=== PATIENT | female | born 1980 | race American Indian/Alaskan Native ===

== ENCOUNTER 2016-09-26 15:31 | Emergency (ER) | payer MEDICAID ==
[2016-09-26 16:15] VITALS: BP 118/85
--- NOTE | 2016-09-26 16:54 | Emergency Department Report ---
Chief Complaint: Chest Pain Stated Complaint: HEADACHE/NAUSEA Time Seen by Provider: 09/26/16 16:51 - HPI History of Present Illness: 36 y/o female complain of chest pain with n/v /pt complain of toothache that she current taking antibiotic and Tylenol#4.pt state she 14 weeks and is unable to be seen by dentist . 3 - ROS Review of Systems: per HPI - Exam Vital Signs: Vital Signs 09/26/16 16:10 Temperature 98.9 F Pulse Rate 111 H Respiratory 20 Rate Blood Pressure 118/85 O2 Sat by Pulse 100 Oximetry Physical Exam: GENERAL: The patient is well-developed and well-nourished. Patient is in NAD. HENT: Normocephalic. Atraumatic. Patient has moist mucous membranes. Throat: No erythema, swelling or exudates. EYES: Extraocular motions are intact, PERRL NECK: Supple. No meningitic signs are noted. There is no adenopathy noted. CHEST/LUNGS: Clear to auscultation bilaterally. No wheezing, rales or rhonchi noted. There is no respiratory distress noted. HEART/CARDIOVASCULAR: Regular rate and rhythm. Normal S1 S2. No murmurs, rubs , clicks, or gallops. ABDOMEN: Abdomen is soft, nontender.. Bowel sounds normoactive. There is no abdominal distention. Negative rebound tenderness. : Deferred. SKIN: There is no rash. There is no edema. There is no diaphoresis. NEURO: The patient is A&Ox3. The patient has no focal neurologic deficits. MUSCULOSKELETAL: There is no tenderness or deformity. There is no limitation range of motion. PSYCH: Pt has appropriate mood and affect. MSE screening note: Focused history and physical exam performed. Due to findings the following was ordered: ED Disposition for MSE Condition: Stable
[2016-09-26 17:48] LABS: Bacteria,Urine 1+ /HPF (Negative); Bilirubin,Urine NEG (Negative); Blood,Urine SM (Negative); Ketones,Urine 80 mg/dL (Negative); Leukocyte Esterase,Urine SM (Negative); Mucus,Urine 3+ /HPF; Nitrite,Urine NEG (Negative)
[2016-09-26 17:50] LABS: Protein,Urine >500 mg/dL (Negative)
--- NOTE | 2016-09-27 13:53 | ED Elopement Review ---
ED Pt Elopement review - Results review Lab results: Laboratory Tests 09/26/16 17:06 Urine Color Goldie Urine Turbidity Clear Urine pH 5.0 Ur Specific [place] 1.030 Urine Protein >500 Urine Glucose (UA) Neg Urine Ketones 80 Urine Blood Sm Urine Nitrite Neg Urine Bilirubin Neg Urine Urobilinogen 2.0 Ur Leukocyte Esterase Sm Urine WBC (Auto) 1.0 Urine RBC (Auto) 11.0 U Epithel Cells (Auto) 9.0 Urine Bacteria (Auto) 1+ Hyaline Casts 1 Urine Mucus 3+ - Call Back decision Pt Call Back Decision: Call pt to return to ED AR[facility]IN (chest pain and tachycardia during practitioners should be further evaluated)
== END 2016-09-26 17:00 | disposition left against medical advice (07) ==
LOC: ED 15:31
DX: O21.0 Mild hyperemesis gravidarum (principal); O26.892 Other specified pregnancy related conditions, second trimester; K08.89 Other specified disorders of teeth and supporting structures; R07.9 Chest pain, unspecified; Z3A.14 14 weeks gestation of pregnancy; Z53.21 Procedure and treatment not carried out due to patient leaving prior to being seen by health care provider
CPT/HCPCS: 81001; 93005; 93010

== ENCOUNTER 2017-03-07 14:58 | Outpatient (CLI) | payer MEDICAID ==
[2017-03-07] MEDS ORDERED: LACTATED RINGERS 500 ML IV ONE (15:18)
[2017-03-07 15:54] LABS: Bilirubin,Urine NEG (Negative); Blood,Urine NEG (Negative); Ketones,Urine NEG (Negative); Leukocyte Esterase,Urine NEG (Negative); Mucus,Urine 1+ /HPF; Nitrite,Urine NEG (Negative)
[2017-03-07 16:04] LABS: Hematocrit 28.7 % (30.3-42.9); Hemoglobin 9.1 gm/dl (10.1-14.3); Mean Corpuscular HGB Conc 32 % (30-34); Mean Corpuscular Volume 73 fl (79-97); Platelet Count 255 K/mm3 (140-440); Red Blood Count 3.96 M/mm3 (3.65-5.03); Red Cell Distribution Width 16.7 % (13.2-15.2); White Blood Count 9.1 K/mm3 (4.5-11.0)
[2017-03-07 16:06] LABS: Mean Corpuscular Hemoglobin 23 pg (28-32)
[2017-03-07 16:11] LABS: Alanine Aminotransferase 5 units/L (7-56); Lactate Dehydrogenase 169 units/L (91-180); Uric Acid 5.1 mg/dL (3.5-7.6)
--- NOTE | 2017-03-07 16:13 | Ultrasound Report ---
BIOPHYSICAL PROFILE: 2 - breathing movements 2 - movements 2 - posture and tone 2 - Qualitative amniotic fluid volume 8 - TOTAL SCORE OF POSSIBLE 8 Heart Rate (bpm) 148
--- NOTE | 2017-03-07 16:13 | Ultrasound Report ---
Limited transabdominal OB ultrasound. Findings: A single fetus is identified in cephalic presentation. The ALEA is normal at 13 cm. The heart rate is 158 beats per minute.
[2017-03-07 17:56] VITALS: BP 144/93
== END 2017-03-07 18:40 | disposition home or self-care (01) ==
LOC: TRG 14:58
PROVIDERS: ATTEND Obstetrics & Gynecology
DX: Z34.93 Encounter for supervision of normal pregnancy, unspecified, third trimester (principal); Z3A.36 36 weeks gestation of pregnancy
CPT/HCPCS: 36415; 59025; 76815; 76819; 81001; 82565; 83615; 84450; 84460; 84550; 85027

== ENCOUNTER 2017-03-13 10:03 | Outpatient (CLI) | payer MEDICAID ==
[2017-03-13 10:24] VITALS: BP 125/83
== END 2017-03-13 11:08 | disposition home or self-care (01) ==
LOC: TRG 10:03
PROVIDERS: ATTEND Obstetrics & Gynecology
DX: O09.523 Supervision of elderly multigravida, third trimester (principal); O99.333 Smoking (tobacco) complicating pregnancy, third trimester; O47.1 False labor at or after 37 completed weeks of gestation; Z3A.37 37 weeks gestation of pregnancy
CPT/HCPCS: 59025

== ENCOUNTER 2017-03-14 19:55 | Outpatient (CLI) | payer MEDICAID ==
[2017-03-14 20:48] VITALS: BP 127/87
== END 2017-03-14 21:05 | disposition home or self-care (01) ==
LOC: TRG 19:55
PROVIDERS: ATTEND Obstetrics & Gynecology
DX: O09.523 Supervision of elderly multigravida, third trimester (principal); O36.8130 Decreased fetal movements, third trimester, not applicable or unspecified; O62.9 Abnormality of forces of labor, unspecified; Z3A.37 37 weeks gestation of pregnancy
CPT/HCPCS: 59025

== ENCOUNTER 2017-03-21 00:54 | Inpatient (IN) | payer MEDICAID ==
[2017-03-21] MEDS: LACTATED RINGERS 1,000 ML IV SCH ×2 (01:40→06:05)
[2017-03-21] MEDS ORDERED: TYLENOL PO ONE (01:53)
[2017-03-21 01:57] LABS: Bilirubin,Urine NEG (Negative); Blood,Urine SM (Negative); Ketones,Urine NEG (Negative); Leukocyte Esterase,Urine LG (Negative); Mucus,Urine FEW /HPF; Nitrite,Urine NEG (Negative)
[2017-03-21 02:09] LABS: Hematocrit 27.3 % (30.3-42.9); Hemoglobin 8.7 gm/dl (10.1-14.3); Mean Corpuscular HGB Conc 32 % (30-34); Mean Corpuscular Volume 72 fl (79-97); Platelet Count 259 K/mm3 (140-440); Red Blood Count 3.82 M/mm3 (3.65-5.03); Red Cell Distribution Width 16.8 % (13.2-15.2); White Blood Count 7.4 K/mm3 (4.5-11.0)
[2017-03-21 02:12] LABS: Mean Corpuscular Hemoglobin 23 pg (28-32)
[2017-03-21 02:29] LABS: Alanine Aminotransferase 8 units/L (7-56); Alkaline Phosphatase 124 units/L (35-129); Anion Gap 14 mmol/L; BUN/Creatinine Ratio 12.85; Blood Urea Nitrogen 9 mg/dL (7-17); Calcium 8.2 mg/dL (8.4-10.2); Carbon Dioxide 24 mmol/L (22-30); Chloride 102.9 mmol/L (98-107); Glucose 85 mg/dL (65-100); Potassium 3.4 mmol/L (3.6-5.0); Sodium 137 mmol/L (137-145); Total Protein 5.9 g/dL (6.3-8.2)
[2017-03-21 02:33] LABS: Uric Acid 4.9 mg/dL (3.5-7.6)
--- NOTE | 2017-03-21 03:07 | History and Physical Report ---
History of Present Illness Date of examination: 03/21/17 Date of admission: 03/21/2017 Chief complaint: Headache History of present illness: 37 yo at 38.2 weeks. A patient of [facility] since 8 weeks of . Course complicated by AMA, chronic headaches, anemia, and chronic hypertension. Pt has been co managed with [facility]. She has not been on medication for her HTN during the but presents to L&D triage [facility] with a headache and blood pressures ranging from 150-170s/90-107. 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 denies: alcohol abuse - Obstetrical History Expected Date of Delivery: 04/02/17 Actual Gestation: 38 Week(s) 2 Day(s) : 5 Para: 4 Hx # Term Pregnancies: 4 Number of Pregnancies: 0 Spontaneous Abortions: 0 Induced : 1 Number of Living Children: 4 Medications and Allergies Allergies Allergy/AdvReac Type Severity Reaction Status Date / Time bee pollen Allergy Angioedema Verified 08/01/14 14:36 Home Medications Medication Instructions Recorded Confirmed Last Taken Type Azithromycin [Zithromax] 250 mg PO DAILY #1 pkg 12/02/15 Unknown Rx Fluticasone [Flonase] 2 spray NS QDAY #1 bottle 12/02/15 Unknown Rx Loratadine [Claritin] 10 mg PO DAILY #30 tablet 12/02/15 Unknown Rx Prednisone [predniSONE 10 mg 10 mg PO .TAPER #1 tab.ds.pk 12/02/15 Unknown Rx (6-Day Pack, 21 Tabs)] Promethazine /Codeine 5 ml PO Q6H PRN #150 ml 12/02/15 Unknown Rx [Phenergan/Codeine 6.25-10 mg/5 ml] Active Meds: Active Medications Lactated Ringer's (Lactated Ringers) 1,000 mls @ 125 mls/hr IV DIRECT CARON Review of Systems All systems: negative - Vital Signs Vital signs: Vital Signs Pulse BP 71 137/94 03/21/17 01:04 03/21/17 01:04 Temp Pulse Resp BP Pulse Ox 60 156/98 03/21/17 02:37 03/21/17 02:37 - Physical Exam Cardiovascular: Regular rate Lungs: Positive: Normal air movement Vagina: Positive: normal moisture Extremities: Positive: normal Deep Tendon Reflex Grade: Normal +2 - Obstetrical FHR: category 1 Uterine Contraction Monitor Mode: External Uterine Contraction Pattern: Absent Results Result Diagrams: 03/21/17 01:40 03/21/17 01:40 Abnormal lab results 03/21/17 03/21/17 Range/Units 01:40 01:40 Hgb 8.7 L (10.1-14.3) gm/dl Hct 27.3 L (30.3-42.9) % MCV 72 L (79-97) fl MCH 23 L (28-32) pg RDW 16.8 H (13.2-15.2) % Potassium 3.4 L (3.6-5.0) mmol/L Calcium 8.2 L (8.4-10.2) mg/dL Total Protein 5.9 L (6.3-8.2) g/dL Albumin 3.0 L (3.9-5) g/dL All other labs normal. Assessment and Plan A: IUP 38.2 Chronic HTN with superimposed pre-eclampsia with severe features Headache Category 1 FHT Negligible contractions GBS negative P: Consulted with Dr. Puga who agrees with this plan Admit to L&D for IOL Being magnesium sulfate Pitocin induction
[2017-03-21] MEDS ORDERED: ePHEDrine SULFATE IV PRN (03:15)
[2017-03-21] MEDS ORDERED: STADOL IV PRN (03:15)
[2017-03-21] MEDS ORDERED: BRETHINE IVP PRN (03:15)
[2017-03-21] MEDS ORDERED: XYLOCAINE 2% INFILTRATI ONE (03:15)
[2017-03-21] MEDS ORDERED: BRETHINE SUB-Q PRN (03:15)
[2017-03-21] MEDS ORDERED: MINERAL OIL PO PRN (03:15)
[2017-03-21] MEDS ORDERED: ZOFRAN IV PRN (03:15)
[2017-03-21] MEDS ORDERED: SUBLIMAZE IV PRN (03:15)
[2017-03-21] MEDS ORDERED: MAGNESIUM SULFATE 4GM/100ML 4 GM/100 ML BAG IV ONE (03:18)
[2017-03-21] MEDS ORDERED: APRESOLINE IV PRN (03:20)
[2017-03-21] MEDS ORDERED: PITOCin/NS 20 UNIT/1000ML DRIP 20 UNITS/1,000 ML BAG IV SCH (04:00)
[2017-03-21] MEDS: MAGNESIUM SULFATE 40GM/1000ML 40 GM/1,000 ML BAG IV SCH (06:05)
[2017-03-21] MEDS: PITOCin/NS 30 UNIT/500ML 30 UNITS/500 ML BAG IV SCH ×3 (07:42→09:48)
--- NOTE | 2017-03-21 08:42 | Event Note ---
Date: 03/21/17 O: Arom clear fluid, , CAT I tracing, Pit increased to 6mu A: Active labor P; Expect
[2017-03-21] MEDS ORDERED: CYTOTEC PR ONE (12:00)
[2017-03-21] MEDS ORDERED: CYTOTEC ONE (12:03)
[2017-03-21] MEDS ORDERED: PHENERGAN PO PRN (12:16)
[2017-03-21] MEDS ORDERED: TYLENOL PO PRN (12:16)
[2017-03-21] MEDS ORDERED: BENADRYL PO PRN (12:16)
[2017-03-21] MEDS ORDERED: LANSINOH TP PRN (12:16)
--- NOTE | 2017-03-21 12:22 | Procedure Note ---
OB Delivery Note - Delivery Date of Delivery: 03/21/17 Surgeon: JUANITO SANTA Estimated blood loss: other (400) - Vaginal Delivery presentation: vertex Delivery position: OA Intrapartum events: preeclampsia Delivery induction: oxytocin Delivery augmentation: rupture of membranes Delivery monitor: external FHT, external uterine Route of delivery: Delivery placenta: spontaneous Delivery cord: nuchal cord, 3 umbilical vessels Episiotomy: none Delivery laceration: none Anesthesia: intravenous Delivery comments: of a viable female 6#-1oz @ 1142 on 03/21/17 over intact perineum. Loose nuchal cord x1. PLacenta delivered 3 VCI. Bladder emptied with red lexi, large amount of urine noted. Lost IV site. Pitocin 10 mg IM and Cytotec 600mg PA x one. Fundal massage done. EBL 400 cc. Mother and baby doing well. - A at 1 minute: 8 at 5 minutes: 9 Gender: Female (6# -1 oz)
[2017-03-21] MEDS ORDERED: SODIUM CHLORIDE FLUSH SYRINGE 10 ML IV NR (13:00)
[2017-03-21] MEDS: NORCO 5/325 PO PRN ×2 (15:19→21:07)
[2017-03-21] MEDS: MOTRIN PO SCH ×2 (17:54→23:39)
[2017-03-22] MEDS: LACTATED RINGERS 1,000 ML IV SCH (01:14)
[2017-03-22] MEDS: MAGNESIUM SULFATE 40GM/1000ML 40 GM/1,000 ML BAG IV SCH (01:15)
--- NOTE | 2017-03-22 01:48 | Event Note ---
Date: 03/22/17 Reviewed labs, mag level 5.8. Plan is to reduce magnesium to 1 g per hour
[2017-03-22 02:31] LABS: Hematocrit 27.5 % (30.3-42.9); Hemoglobin 8.7 gm/dl (10.1-14.3)
[2017-03-22] MEDS: MOTRIN PO SCH ×2 (04:58→11:00)
[2017-03-22] MEDS: NORCO 5/325 PO PRN ×3 (06:10→20:33)
--- NOTE | 2017-03-22 09:52 | Progress Note ---
Assessment and Plan A: PPD 1 Chronic HTN with superimposed pre-eclampsia with severe features Headache BP remains slightly elevated post P: Consulted with Dr. Pimentel who agrees with this plan Continue care Begin HCTZ 25 mg po qday and follow up on Sunday in the clinic for a BP check DC today Subjective - Subjective Date of service: 03/22/17 Principal diagnosis: PPD1 Interval history: 37 yo at 38.2 weeks. 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 Course complicated by AMA, chronic headaches, anemia, and chronic hypertension. Pt has been co managed with [facility]. She has not been on medication for her HTN during the but presented to L&D triage with a headache and blood pressures ranging from 150-170s/90-107. Started on MgSO4 for Preeclampsia with severe features and induced for oligo. Delivered 03/21/2017 @ 1111. BPS have been slighlty elevated since delivery. Patient reports: appetite normal, voiding normally, pain well controlled, ambulating normally : doing well Objective - Vital Signs Latest vital signs: Vital Signs Temp Pulse Pulse Resp BP BP 03/22/17 08:02 97.8 F 65 18 132/85 03/22/17 06:00 98 F 66 18 149/85 03/22/17 04:25 98.2 F 66 20 128/77 03/22/17 02:00 98 F 61 22 139/84 03/22/17 00:00 98.2 F 60 20 143/83 03/21/17 22:00 98.5 F 66 20 148/84 03/21/17 20:00 98.1 F 62 22 152/84 03/21/17 18:22 97.9 F 68 18 127/87 03/21/17 14:45 98.1 F 62 18 141/86 03/21/17 13:55 63 173/91 03/21/17 13:40 63 150/91 03/21/17 13:25 72 155/89 03/21/17 13:10 60 168/109 03/21/17 12:55 62 151/97 03/21/17 12:40 68 147/90 03/21/17 12:25 75 141/88 03/21/17 11:58 72 161/81 03/21/17 10:57 68 157/87 03/21/17 10:29 72 173/89 07/12/17 09:59 63 168/95 Intake and Output 03/21/17 03/22/17 03/22/17 22:59 06:59 14:59 Intake Total 360 720 Output Total 2600 800 Balance -2240 -80 Intake: Oral 120 Intake, Free Water 240 720 Output: Urine 2600 800 Void 2600 800 Other: Total, Intake Amount 120 Total, Output Amount 800 800 # Voids Void 1 1 - Exam Cardiovascular: Present: Regular rate Lungs: Present: Normal air movement Vulva: both: normal (scant lochia) Uterus: Present: fundal height below umbilicus Extremities: Present: normal Deep Tendon Reflex Grade: Normal +2 - Labs Labs: Abnormal lab results 03/21/17 03/21/17 03/22/17 Range/Units 16:32 23:04 01:20 Hgb 8.7 L (10.1-14.3) gm/dl Hct 27.5 L (30.3-42.9) % Magnesium 4.80 H 5.80 H (1.7-2.3) mg/dL 03/22/17 Range/Units 07:41 Hgb (10.1-14.3) gm/dl Hct (30.3-42.9) % Magnesium 3.40 H (1.7-2.3) mg/dL - Allied health notes Allied health notes reviewed: nursing
--- NOTE | 2017-03-22 09:56 | Discharge Summary ---
Providers - Providers Date of Admission: 03/21/17 03:57 Date of discharge: 03/22/17 Attending physician: LAMAR DIEHL MD Primary care physician: LAMAR DIEHL MD Hospitalization Reason for admission: active labor, induction of labor (Scheduled for IOL for oligo but became active labor while awaiting admission) Delivery: Laceration: none Other procedures: none Discharge diagnosis: IUP at term delivered baby: female Hospital course: Elevated BPs antepartum received MgSO4. Mg level 5.8. BPs slightly elevated. Condition at discharge: Good Disposition: DC-01 TO HOME OR SELFCARE Plan - Provider Discharge Summary Activity: routine, no sex for 6 weeks, no heavy lifting 4 weeks, no strenuous exercise Diet: routine Instructions: routine Additional instructions: [] Smoking cessation referral if applicable(refer to patient education folder for contact #) [] Refer to [facility]'s [facility] Booklet Call your doctor immediately for: * Fever > 100.5 * Heavy vaginal bleeding ( >1 pad per hour) * Severe persistent headache * Shortness of breath * Reddened, hot, painful area to leg or breast * Drainage or odor from incision. * Keep incision clean and dry at all times and follow doctor's instructions regarding bathing/showering - Follow up plan Follow up: [facility] [Provider Group] - 03/26/17
[2017-03-22] MEDS ORDERED: HCTZ PO SCH (10:00)
[2017-03-22 19:09] VITALS: BP 123/77
== END 2017-03-22 20:53 | disposition home or self-care (01) | DRG 774 ==
LOC: TRG 00:54 → LD 03:57 → OB 15:09
PROVIDERS: ADMIT Obstetrics & Gynecology; ATTEND Obstetrics & Gynecology
PROC: 10E0XZZ Delivery of Products of Conception, External Approach (ICD-10-PCS; principal; 2017-03-21)
PROC: 3E033VJ Introduction of Other Hormone into Peripheral Vein, Percutaneous Approach (ICD-10-PCS; 2017-03-21)
DX: O14.14 Severe pre-eclampsia complicating childbirth (principal); O69.81X0 Labor and delivery complicated by cord around neck, without compression, not applicable or unspecified; O99.334 Smoking (tobacco) complicating childbirth; O99.354 Diseases of the nervous system complicating childbirth; G43.909 Migraine, unspecified, not intractable, without status migrainosus; O09.523 Supervision of elderly multigravida, third trimester; Z88.8 Allergy status to other drugs, medicaments and biological substances; Z3A.38 38 weeks gestation of pregnancy; Z37.0 Single live birth; Z91.030 Bee allergy status
CPT/HCPCS: 36415; 80053; 81001; 83615; 83735; 84550; 85014; 85018; 85027; 86850; 86900; 86901; A6250; J0595; J2590; J3010; J3475; J7120

== ENCOUNTER 2019-01-27 11:22 | Observation (INO) | payer MEDICAID ==
--- NOTE | 2019-01-27 11:55 | Emergency Department Report ---
Blank Doc - Documentation Documentation: this is a 38-year-old female that presents with vaginal bleeding and pelvic pa in. Stated is about 5 weeks . This initial assessment/diagnostic orders/clinical plan/treatment(s) is/are subject to change based on patient's health status, clinical progression and re-assessment by fellow clinical providers in the ED. Further treatment and workup at subsequent clinical providers discretion. Patient/guardians urged not to elope from the ED as their condition may be serious if not clinically assessed and managed. Initial orders include: 1- Patient sent to [facility] for further evaluation and treatment 2- labs 3- UA 4- US OB
--- NOTE | 2019-01-27 13:27 | Ultrasound Report ---
PROCEDURE: US OB TRANSVAGINAL, US OB <= 14 WEEKS FETUS TECHNIQUE: Real-time transabdominal sonography of the uterus, placenta, amniotic fluid, adnexa, and fetus was performed with image documentation. Measurements were obtained to determine age/size. M-mode Doppler was used to document heartbeat. HISTORY: vaginal bleeding COMPARISONS: None . FINDINGS: Uterus: 10.7 x 6.2 x 5.9 cm, retroverted. Endometrium is irregular with complex fluid. Cervix: Normal. Right Ovary: 2.2 x 2.1 x 3.9 cm in size. Normal morphology with 2 adjacent simple appearing follicle s. Left Ovary: 2.4 x 2.8 x 2.8 cm. Normal in morphology. Within the left adnexa, there is a thick-mariza d 0.75 cm cystic structure with internal vascularity as well as a possible yolk sac . Estimated delivery date: 09/25/2019 . IMPRESSION: Findings are concerning for ectopic within the left adnexa. Recommend correlation with beta hCG levels and follow-up ultrasound as clinically indicated. Findings were discussed with Dr. Laney powers at 1:24 PM, [place] standard time, on 01/27/2019. Complex fluid within the endometrium that may represent hemorrhagic products. This document is electronically signed by Stephanie Mcdowell MD., Jan 27 2019 01:25:55 PM ET
[2019-01-27 13:28] LABS: Bilirubin,Urine NEG (Negative); Blood,Urine NEG (Negative); Color,Urine Yellow (Yellow); Mucus,Urine FEW /HPF; Protein,Urine <15 mg/dL mg/dL (Negative)
[2019-01-27 15:01] LABS: Alanine Aminotransferase 25 units/L (7-56); Albumin 3.8 g/dL (3.9-5); BUN/Creatinine Ratio 14; Blood Urea Nitrogen 10 mg/dL (7-17); Calcium 8.5 mg/dL (8.4-10.2); Hemolysis Index 3
[2019-01-27 15:11] LABS: Basophils # (Auto) 0.1 K/mm3 (0.0-0.1); Eosinophils # (Auto) 0.2 K/mm3 (0.0-0.4); Eosinophils % (Auto) 4.1 % (0.0-4.3); Hematocrit 30.8 % (30.3-42.9); Hemoglobin 9.9 gm/dl (10.1-14.3); Lymphocytes # (Auto) 1.7 K/mm3 (1.2-5.4); Lymphocytes % (Auto) 29.6 % (13.4-35.0); Mean Corpuscular HGB Conc 32 % (30-34); Mean Corpuscular Volume 75 fl (79-97); Monocytes # (Auto) 0.5 K/mm3 (0.0-0.8); Monocytes % (Auto) 8.1 % (0.0-7.3); Platelet Count 229 K/mm3 (140-440); Red Blood Count 4.09 M/mm3 (3.65-5.03); Red Cell Distribution Width 15.3 % (13.2-15.2)
--- NOTE | 2019-01-27 15:43 | Emergency Department Report ---
ED Female HPI - General Chief complaint: Vaginal Bleeding Stated complaint: 5 WKS /BLEEDING Time Seen by Provider: 01/27/19 11:54 Source: patient Mode of arrival: Ambulatory Limitations: No Limitations - History of Present Illness Initial comments: The patient is a 38-year-old black female who is . Patient is Guillermoley 5 weeks with having some vaginal bleeding and cramping in the suprapubic region and low back starting today. Patient states about how she got here the bleeding has subsided but she still having some cramping. Patient is a cramping as 7 out of 10 in severity. Patient denies any fevers chills nausea vomiting or syncope. She denies dysuria vaginal discharge. - Related Data Previous Rx's Medication Instructions Recorded Last Taken Type Azithromycin [Zithromax] 250 mg PO DAILY #1 pkg 12/02/15 Unknown Rx Fluticasone [Flonase] 2 spray NS QDAY #1 bottle 12/02/15 Unknown Rx Loratadine [Claritin] 10 mg PO DAILY #30 tablet 12/02/15 Unknown Rx Prednisone [predniSONE 10 mg 10 mg PO .TAPER #1 tab.ds.pk 12/02/15 Unknown Rx (6-Day Pack, 21 Tabs)] Promethazine /Codeine 5 ml PO Q6H PRN #150 ml 12/02/15 Unknown Rx [Phenergan/Codeine 6.25-10 mg/5 ml] Ibuprofen [Motrin] 800 mg PO Q8HR PRN #20 tablet 01/28/19 Unknown Rx oxyCODONE /ACETAMINOPHEN [Percocet 1 tab PO Q4HR #7 tab 01/28/19 Unknown Rx 5/325] Allergies Allergy/AdvReac Type Severity Reaction Status Date / Time bee pollen Allergy Angioedema Verified 08/01/14 14:36 ED Review of Systems ROS: Stated complaint: 5 WKS /BLEEDING Other details as noted in HPI Comment: All other systems reviewed and negative ED Past Medical Hx - Past Medical History Previous Medical History?: Yes Hx Hypertension: Yes Hx Congestive Heart Failure: No Hx Diabetes: No Hx Deep Vein Thrombosis: No Hx Renal Disease: No Hx Sickle Cell Disease: No Hx Seizures: No Hx Asthma: No Hx COPD: No Hx HIV: No - Surgical History Past Surgical History?: Yes Additional Surgical History: - Social History Smoking Status: Former Smoker Substance Use Type: None - Medications Home Medications: Home Medications Medication Instructions Recorded Confirmed Last Taken Type Azithromycin [Zithromax] 250 mg PO DAILY #1 pkg 12/02/15 01/27/19 Unknown Rx Fluticasone [Flonase] 2 spray NS QDAY #1 bottle 12/02/15 01/27/19 Unknown Rx Loratadine [Claritin] 10 mg PO DAILY #30 tablet 12/02/15 01/27/19 Unknown Rx Prednisone [predniSONE 10 mg 10 mg PO .TAPER #1 tab.ds.pk 12/02/15 01/27/19 Unknown Rx (6-Day Pack, 21 Tabs)] Promethazine /Codeine 5 ml PO Q6H PRN #150 ml 12/02/15 01/27/19 Unknown Rx [Phenergan/Codeine 6.25-10 mg/5 ml] Ibuprofen [Motrin] 800 mg PO Q8HR PRN #20 tablet 01/28/19 Unknown Rx oxyCODONE /ACETAMINOPHEN [Percocet 1 tab PO Q4HR #7 tab 01/28/19 Unknown Rx 5/325] ED Physical Exam - General Limitations: No Limitations General appearance: alert, in no apparent distress - Head Head exam: Present: atraumatic, normocephalic - Eye Eye exam: Present: normal appearance - ENT ENT exam: Present: mucous membranes moist - Neck Neck exam: Present: normal inspection - Respiratory Respiratory exam: Present: normal lung sounds bilaterally. Absent: respiratory distress, wheezes, rales, rhonchi - Cardiovascular Cardiovascular Exam: Present: regular rate, normal rhythm. Absent: systolic murmur, diastolic murmur, rubs, gallop - GI/Abdominal GI/Abdominal exam: Present: soft, tenderness (minimal in suprapubic ), normal bowel sounds. Absent: distended, guarding, rebound, rigid - Extremities Exam Extremities exam: Present: normal inspection - Back Exam Back exam: Present: normal inspection - Neurological Exam Neurological exam: Present: alert, oriented X3 - Psychiatric Psychiatric exam: Present: normal affect, normal mood - Skin Skin exam: Present: warm, dry, intact, normal color. Absent: rash ED Course Vital Signs 01/27/19 01/27/19 01/27/19 11:53 21:08 21:15 Temperature 98.6 F 98.1 F Pulse Rate 91 H 72 64 Pulse Rate [ Apical] Respiratory 16 16 16 Rate Blood Pressure 129/83 145/88 152/94 Blood Pressure [Right] O2 Sat by Pulse 100 98 100 Oximetry 01/27/19 01/27/19 01/27/19 21:20 21:25 21:30 Temperature Pulse Rate 63 66 64 Pulse Rate [ Apical] Respiratory 14 15 14 Rate Blood Pressure 142/92 144/95 139/93 Blood Pressure [Right] O2 Sat by Pulse 100 100 100 Oximetry 01/27/19 01/27/19 01/27/19 21:38 21:40 21:54 Temperature 98.1 F Pulse Rate 68 68 Pulse Rate [ Apical] Respiratory 16 16 14 Rate Blood Pressure 147/86 138/89 Blood Pressure [Right] O2 Sat by Pulse 100 100 Oximetry 01/27/19 01/27/19 01/27/19 21:55 22:10 22:29 Temperature 97.7 F Pulse Rate 67 Pulse Rate [ 78 Apical] Respiratory 18 16 20 Rate Blood Pressure 136/90 Blood Pressure [Right] O2 Sat by Pulse 100 Oximetry 01/28/19 01/28/19 01/28/19 05:30 08:00 08:57 Temperature 98.0 F 98.2 F Pulse Rate 74 86 Pulse Rate [ 82 Apical] Respiratory 20 18 20 Rate Blood Pressure 123/80 Blood Pressure [Right] O2 Sat by Pulse 100 100 Oximetry 01/28/19 11:25 Temperature 98.2 F Pulse Rate 72 Pulse Rate [ Apical] Respiratory 18 Rate Blood Pressure Blood Pressure 127/80 [Right] O2 Sat by Pulse 99 Oximetry ED Medical Decision Making - Lab Data Result diagrams: 01/28/19 10:24 01/27/19 14:21 Labs 01/27/19 01/27/19 01/27/19 12:31 14:21 14:21 WBC 5.7 RBC 4.09 Hgb 9.9 L Hct 30.8 MCV 75 L MCH 24 L MCHC 32 RDW 15.3 H Plt Count 229 Lymph % (Auto) 29.6 [place] % (Auto) 8.1 H Eos % (Auto) 4.1 Baso % (Auto) 1.0 Lymph # 1.7 [place] # 0.5 Eos # 0.2 Baso # 0.1 Seg Neutrophils % 57.2 Seg Neutrophils # 3.3 Sodium Potassium Chloride Carbon Dioxide Anion Gap BUN Creatinine Estimated GFR BUN/Creatinine Ratio Glucose Calcium Total Bilirubin AST ALT Alkaline Phosphatase Total Protein Albumin Albumin/Globulin Ratio HCG, Quant 2827 H Urine Color Yellow Urine Turbidity Hazy Urine pH 7.0 Ur Specific [place] 1.021 Urine Protein <15 mg/dl Urine Glucose (UA) Neg Urine Ketones Neg Urine Blood Neg Urine Nitrite Neg Urine Bilirubin Neg Urine Urobilinogen 2.0 Ur Leukocyte Esterase Tr Urine WBC (Auto) 2.0 Urine RBC (Auto) 3.0 U Epithel Cells (Auto) 3.0 Urine Mucus Few Blood Type Antibody Screen 01/27/19 01/27/19 14:21 14:21 WBC RBC Hgb Hct MCV MCH MCHC RDW Plt Count Lymph % (Auto) [place] % (Auto) Eos % (Auto) Baso % (Auto) Lymph # [place] # Eos # Baso # Seg Neutrophils % Seg Neutrophils # Sodium 138 Potassium 3.9 Chloride 103.5 Carbon Dioxide 26 Anion Gap 12 BUN 10 Creatinine 0.7 Estimated GFR > 60 BUN/Creatinine Ratio 14 Glucose 90 Calcium 8.5 Total Bilirubin 0.20 AST 18 ALT 25 Alkaline Phosphatase 118 Total Protein 6.3 Albumin 3.8 L Albumin/Globulin Ratio 1.5 HCG, Quant Urine Color Urine Turbidity Urine pH Ur Specific [place] Urine Protein Urine Glucose (UA) Urine Ketones Urine Blood Urine Nitrite Urine Bilirubin Urine Urobilinogen Ur Leukocyte Esterase Urine WBC (Auto) Urine RBC (Auto) U Epithel Cells (Auto) Urine Mucus Blood Type O POSITIVE Antibody Screen Negative - Radiology Data [facility] [address] [place] [address] Ultrasound Report Signed Patient: OLEKSANDR RODRIGUEZ MR#: [id number] : 1980 Acct:[id number] Age/Sex: 38 / F ADM Date: 01/27/19 Loc: ED Attending Dr: Ordering Physician: RAJIV PURCELL NP Date of Service: 01/27/19 Procedure(s): US OB transvaginal Accession Number(s): [id number] cc: RAJIV PURCELL NP PROCEDURE: US OB TRANSVAGINAL, US OB <= 14 WEEKS FETUS TECHNIQUE: Real-time transabdominal sonography of the uterus, placenta, amniotic fluid, adnexa, and fetus was performed with image documentation. Measurements were obtained to determine age/size. M-mode Doppler was used to document heartbeat. HISTORY: vaginal bleeding COMPARISONS: None . FINDINGS: Uterus: 10.7 x 6.2 x 5.9 cm, retroverted. Endometrium is irregular with complex fluid. Cervix: Normal. Right Ovary: 2.2 x 2.1 x 3.9 cm in size. Normal morphology with 2 adjacent simple appearing follicles. Left Ovary: 2.4 x 2.8 x 2.8 cm. Normal in morphology. Within the left adnexa, there is a thick- walled 0.75 cm cystic structure with internal vascularity as well as a possible yolk sac . Estimated delivery date: 09/25/2019 . IMPRESSION: Findings are concerning for ectopic within the left adnexa. Recommend correlation with beta hCG levels and follow-up ultrasound as clinically indicated. Findings were discussed with Dr. Zarate at 1:24 PM, [place] standard time, on 01/27/2019. Complex fluid within the endometrium that may represent hemorrhagic products. This document is electronically signed by Stephanie Franco MD., Jan 27 2019 01:25:55 PM ET Transcribed By: BOGDAN Dictated By: STEPHANIE FRANCO MD Electronically Authenticated By: STEPHANIE FRANCO MD Signed Date/Time: 01/27/19 1327 DD/ 1155 TD/TT: 01/27/19 1155 - Medical Decision Making Patient appears to have an ectopic in the left adnexa. Patient likely is not ruptured. Dr. Petty will be seen the patient here in the emergency department. Critical care attestation.: If time is entered above; I have spent that time in minutes in the direct care of this critically ill patient, excluding procedure time. ED Disposition Clinical Impression: Ectopic Disposition: OP ADMIT IP TO THIS HOSP Is pt being admited?: Yes Does the pt Need Aspirin: No Condition: Stable
[2019-01-27] MEDS ORDERED: MARCAINE 0.5% INFILTRATI ONE ×2 (17:41→19:35)
--- NOTE | 2019-01-27 18:00 | History and Physical Report ---
History of Present Illness Date of examination: 01/27/19 Date of admission: 01/27/19 Chief complaint: at 5 weeks with left-sided pelvic pain, positive test. History of present illness: Patient is a 38 year old , LMP 12/21/18 at 5 weeks gestation who presented to the ER complaining of having left-sided pelvic pain for 3 days which worsened today and vaginal spotting. She denies any dizziness, palpitation, or chest pain. Vitals are stable. Pelvic sonogram showed an empty uterus, a complex structure in the left adnexa with internal vascularity, normal right adnexa. H/H:9.9/30.8, HC. T&: O+. I was called by the ER doctor at 4:42 PM for a consult. I found the patient lying in bed. She is alert and in no acute distress. 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 Past History Past Medical History: hypertension Past Surgical History: D&C Family/Genetic History: none Social history: no significant social history - Obstetrical History : 5 Medications and Allergies Allergies Allergy/AdvReac Type Severity Reaction Status Date / Time bee pollen Allergy Angioedema Verified 08/01/14 14:36 Home Medications Medication Instructions Recorded Confirmed Last Taken Type Azithromycin [Zithromax] 250 mg PO DAILY #1 pkg 12/02/15 Unknown Rx Fluticasone [Flonase] 2 spray NS QDAY #1 bottle 12/02/15 Unknown Rx Loratadine [Claritin] 10 mg PO DAILY #30 tablet 12/02/15 Unknown Rx Prednisone [predniSONE 10 mg 10 mg PO .TAPER #1 tab.ds.pk 12/02/15 Unknown Rx (6-Day Pack, 21 Tabs)] Promethazine /Codeine 5 ml PO Q6H PRN #150 ml 12/02/15 Unknown Rx [Phenergan/Codeine 6.25-10 mg/5 ml] - Vital Signs Vital signs: Vital Signs Temp Pulse Resp BP Pulse Ox 98.6 F 91 H 16 129/83 100 01/27/19 11:53 01/27/19 11:53 01/27/19 11:53 01/27/19 11:53 01/27/19 11:53 Temp Pulse Resp BP Pulse Ox 98.6 F 91 H 16 129/83 100 01/27/19 11:53 01/27/19 11:53 01/27/19 11:53 01/27/19 11:53 01/27/19 11:53 - Physical Exam Cardiovascular: Normal S1, Normal S2 Lungs: Positive: Clear to auscultation Abdomen: Positive: normal appearance, tenderness (Mild left-sided, no rebound.) Vulva: both: normal Adnexa: left: tenderness (Unbale to assess for any mass.) Deep Tendon Reflex Grade: Normal +2 Results Result Diagrams: 01/27/19 14:21 01/27/19 14:21 Abnormal lab results 01/27/19 01/27/19 01/27/19 Range/Units 14:21 14:21 14:21 Hgb 9.9 L (10.1-14.3) gm/dl MCV 75 L (79-97) fl MCH 24 L (28-32) pg RDW 15.3 H (13.2-15.2) % [place] % (Auto) 8.1 H (0.0-7.3) % Albumin 3.8 L (3.9-5) g/dL HCG, Quant 2827 H (0-4) mIU/mL All other labs normal. Assessment and Plan - Patient Problems (1) 5 weeks gestation of Current Visit: Yes Status: Acute (2) Ectopic , tubal Current Visit: Yes Status: Acute Plan to address problem: For diagnostic laparoscopy. (3) Ectopic Current Visit: Yes Status: Acute Qualifiers: Location of ectopic : unspecified location Intrauterine status: without intrauterine Qualified Code(s): O00.90 - Unspecified ectopic without intrauterine Plan to address problem: I discussed the findings with the patient. I told her that she most likely has an ectopic . I counselled her for diagnostic laparoscopy with possible salpingiectomy, oophorectomy, exploratory lalarotomy. Risks and benefits of the procedure were discussed with the patient such as infection, bleeding requiring blood transfusion, injury to the bowel, bladder and blood vessels. She expressed understanding, her questions were answered, she gave her informed consent. OR team has been notified. Patient is NPO.
[2019-01-27] MEDS ORDERED: LACTATED RINGERS 1,000 ML ONE ×2 (18:17→22:59)
[2019-01-27] MEDS ORDERED: ZEMURON IV ONE (18:42)
[2019-01-27] MEDS ORDERED: XYLOCAINE MPF 2% ONE (18:42)
[2019-01-27] MEDS ORDERED: SUBLIMAZE ONE (18:42)
[2019-01-27] MEDS ORDERED: DIPRIVAN 10 MG/ML IV ONE ×2 (18:42→20:44)
[2019-01-27] MEDS ORDERED: VERSED ONE (18:54)
[2019-01-27] MEDS ORDERED: DILAUDID IV PRN (19:00)
[2019-01-27] MEDS ORDERED: ZOFRAN IV PRN ×2 (19:00→21:14)
--- NOTE | 2019-01-27 19:00 | Anesthesia Consultation ---
Anesthesia Consult and Med Hx - Airway Anesthetic Teeth Evaluation: Good ROM Head & Neck: Adequate Mental/Hyoid Distance: Adequate Mallampati Class: Class II Intubation Access Assessment: Good - Pulmonary Exam CTA: Yes - Cardiac Exam Cardiac Exam: RRR - Pre-Operative Health Status ASA Pre-Surgery Classification: ASA2 - Pulmonary Hx Asthma: No COPD: No Hx Pneumonia: No - Cardiovascular System Hx Hypertension: Yes - Central Nervous System Hx Seizures: No Hx Psychiatric Problems: No - Endocrine Hx Renal Disease: No Hx End Stage Renal Disease: No Hx Hypothyroidism: No Hx Hyperthyroidism: No - Hematic Hx Anemia: Yes Hx Sickle Cell Disease: No - Other Systems Hx Alcohol Use: No
--- NOTE | 2019-01-27 19:00 | Anesthesia Day of Surgery ---
Anesthesia Day of Surgery - Day of Surgery Patient Examined: Yes Patient H&P Reviewed: Yes Patient is NPO: Yes
[2019-01-27] MEDS ORDERED: DECADRON ONE (19:25)
[2019-01-27] MEDS ORDERED: ROBINUL ONE (19:25)
[2019-01-27] MEDS ORDERED: ZOFRAN ONE (19:25)
[2019-01-27] MEDS ORDERED: BLOXIVERZ ONE (19:25)
[2019-01-27] MEDS ORDERED: DILAUDID ONE ×2 (19:57→21:40)
[2019-01-27] MEDS ORDERED: TORADOL ONE (20:49)
[2019-01-27] MEDS ORDERED: NACL 0.9% 1000 ML 1,000 ML ONE (20:55)
[2019-01-27] MEDS ORDERED: PERCOCET 5/325 PO PRN (21:14)
[2019-01-27] MEDS ORDERED: TYLENOL PO PRN (21:14)
--- NOTE | 2019-01-27 21:18 | Operative Report ---
Operative Report Operative Report: Preoperative diagnosis: 1. at 5 weeks with left-sided pelvic pain. 2. Complex structure in the left adnexa and empty uterus on sonogram. Postoperative diagnosis: Ruptured left tubal ectopic with hemoperitoneum. Procedure: 1. Diagnostic laparoscopy. 2. Left salpingiectomy. 3. Evacuation of hemiperitoneum. Surgeon: Dr. Petty Wheel Alignment Technician: none Anesthesia: general EBL: none intraoperatively. But there was 300 cc of hemoperitoneum. IVF: RL 1 liter Complications: none Intraoperative findings: Normal uterus, right fallopian tube and ovaries bilaterally. Left tubal ruptured at the isthmic portion. Hemoperitoneum. Procedure details: Risks, benefits, and alternatives of the procedure were discussed in detail with the patient which included but not limited to risk of infection, hemorrhage requiring blood transfusion, injury to the bowel or bladder and blood vessels, possible removal of fallopian tube or ovaries, possible conversion of the laparoscopy to an open procedure if needed. The patient expressed understanding, her questions were answered, and she gave informed consent. The patient was taken to the operating room with an IV fluid using Ringer's lactate. In the operating room, she was placed in a dorsal supine position and given general anesthesia. She was then placed on the stirrups in a dorsal lithotomy position. The perineum, vagina, cervix, and abdomen were washed and she was prepared and draped in usual sterile fashion. Payan catheter was placed. A bivalve speculum was placed in the vagina and the anterior lip of the cervix was grasped with a single-tooth tenaculum. A HUMI uterine manipulator was advanced into the uterine cavity to provide a means of manipulating the uterus and the procedure. The speculum and tenaculum were then removed. Attention was then turned to the patient's abdomen where a 5 mm skin incision was made in the infraumbilical fold. The Veress needle was introduced into the peritoneal cavity while tenting the abdominal wall. Intraperitoneal placement was confirmed by using a water-filled syringe and by noticing a drop in the intra-abdominal pressure with CO2 gas insufflation. The trocar and sleeves were then advanced without difficulty into the abdomen where intraperitoneal placement was confirmed using laparoscope. Pneumoperitoneum was achieved with 4 L of CO2 gas. A 10-mm mm skin incision was made in the left lower quadrant and a 10 mm trocar and sleeves were then advanced into the abdominal cavity under direct visualization with the laparoscope. A quick survey of the anatomy revealed a normal uterus, right fallopian tube, and ovaries bilaterally, a ruptured left tubal , and hemoperitoneum. A third 5-mm skin incision was made in the suprapubic region and a 5-mm trocar and sleeves were advanced into the abdomen under the direct visualization with the laparoscope. The left fallopian tube with the ectopic was grasped with Blackstone clamp and it was resected using the Ligasure. Good hemostasis was obtained. The hemiperitoneum was suctioned. Endobag was used to removed the ectopic products from the abdomen. That was sent to pathology. The ports were then opened to release to CO2 gas from the abdomen. The instruments were then removed. The ports were closed with 3.0 vicryl sutures. Steri-Strip and Tegaderm were placed. The HUMI uterine manipulator and Payan catheter were then removed. The counts of laps, needles, sponges, and instruments were correct 2. The patient tolerated the procedure well. She was awakened from anesthesia and taken to the recovery room in a stable condition.
[2019-01-27] MEDS: MORPHINE IV PRN (22:58)
[2019-01-27] MEDS ORDERED: LACTATED RINGERS 1,000 ML IV SCH (23:00)
[2019-01-28] MEDS: MORPHINE IV PRN (02:57)
--- NOTE | 2019-01-28 09:37 | Progress Note ---
Assessment and Plan - Patient Problems (1) 5 weeks gestation of Current Visit: Yes Status: Acute (2) Ruptured ectopic Current Visit: Yes Status: Acute Plan to address problem: S/P operative laparoscopy with left salpingiectomy. Patient is stable. CBC ordered. Will discharge home today if H/H is stable. Rx for percocet 5/325 given #7, motrin 800 mg #20 given. Patient was told to f/u in the office in one week. (3) Anemia Current Visit: Yes Status: Acute Qualifiers: Anemia type: iron deficiency Subjective - Subjective Date of service: 01/28/19 Principal diagnosis: ruptured ectopic, S/P laparocopic salpingiectomy Interval history: Patient is a 38 year old , who is S/P operative laparoscopy with left salpingiectomy for ruptured ectopic , POD#1. She denies any complaint. She is tolerating regular diet well. Objective - Vital Signs Latest vital signs: Vital Signs Temp Pulse Pulse Resp BP Pulse Ox 01/28/19 08:57 98.2 F 86 20 123/80 100 01/28/19 05:30 98.0 F 74 20 100 01/27/19 22:29 97.7 F 67 20 136/90 100 01/27/19 22:10 16 01/27/19 21:55 78 18 01/27/19 21:54 68 14 138/89 100 01/27/19 21:40 16 01/27/19 21:38 98.1 F 68 16 147/86 100 01/27/19 21:30 64 14 139/93 100 01/27/19 21:25 66 15 144/95 100 01/27/19 21:20 63 14 142/92 100 01/27/19 21:15 64 16 152/94 100 01/27/19 21:08 98.1 F 72 16 145/88 98 01/27/19 11:53 98.6 F 91 H 16 129/83 100 Intake and Output 01/27/19 01/28/19 01/28/19 23:59 07:59 15:59 Intake Total 200 120 Output Total 300 450 Balance -100 -330 Intake: IV 200 Oral 120 Output: Urine 300 450 Void 300 450 Other: Total, Intake Amount 120 Total, Output Amount 300 250 Voiding Method Toilet Toilet # Voids Void 1 Weight 74.843 kg - Exam Cardiovascular: Present: Normal S1, Normal S2 Lungs: Present: Clear to auscultation Vulva: both: normal Deep Tendon Reflex Grade: Normal +2 - Labs Labs: Abnormal lab results 01/27/19 01/27/19 01/27/19 Range/Units 14:21 14:21 14:21 Hgb 9.9 L (10.1-14.3) gm/dl MCV 75 L (79-97) fl MCH 24 L (28-32) pg RDW 15.3 H (13.2-15.2) % [place] % (Auto) 8.1 H (0.0-7.3) % Albumin 3.8 L (3.9-5) g/dL HCG, Quant 2827 H (0-4) mIU/mL
[2019-01-28] MEDS ORDERED: FEOSOL PO SCH (10:00)
--- NOTE | 2019-01-28 10:32 | Operative Report ---
Operative Report Operative Report: Preoperative diagnosis: 1. at 5 weeks with left-sided pelvic pain. 2. Complex structure in left adnexa and empty uterus on sonogram. Postoperative diagnosis: Ruptured left tubal ectopic with hemoperitoneum. Procedure: 1. Diagnostic laparoscopy. 2. Left salpingiectomy. 3. Evacuation of hemiperitoneum. Surgeon: Dr. Petty Assistant Finance Manager: none Anesthesia: general EBL: none intraoperatively. But there was 300 cc of hemoperitoneum. IVF: RL 1 liter Complications: none Intraoperative findings: Normal uterus, right fallopian tube and ovaries bilaterally. Left tubal ruptured at the isthmic portion. Hemoperitoneum. Procedure details: Risks, benefits, and alternatives of the procedure were discussed in detail with the patient which included but not limited to risk of infection, hemorrhage requiring blood transfusion, injury to the bowel or bladder and blood vessels, possible removal of fallopian tube or ovaries, possible conversion of the laparoscopy to an open procedure if needed. The patient expressed understanding, her questions were answered, and she gave informed consent. The patient was taken to the operating room with an IV fluid using Ringer's lactate. In the operating room, she was placed in a dorsal supine position and given general anesthesia. She was then placed on the stirrups in a dorsal lithotomy position. The perineum, vagina, cervix, and abdomen were washed and she was prepared and draped in usual sterile fashion. Payan catheter was p laced. A bivalve speculum was placed in the vagina and the anterior lip of the cervix was grasped with a single-tooth tenaculum. A HUMI uterine manipulator was advanced into the uterine cavity to provide a means of manipulating the uterus and the procedure. The speculum and tenaculum were then removed. Attention was then turned to the patient's abdomen where a 5 mm skin incision was made in the infraumbilical fold. The Veress needle was introduced into the peritoneal cavity while tenting the abdominal wall. Intraperitoneal placement was confirmed by using a water-filled syringe and by noticing a drop in the intra-abdominal pressure with CO2 gas insufflation. The trocar and sleeves were then advanced without difficulty into the abdomen where intraperitoneal placement was confirmed using laparoscope. Pneumoperitoneum was achieved with 4 L of CO2 gas. A 10-mm mm skin incision was made in the left lower quadrant and a 10 mm trocar and sleeves were then advanced into the abdominal cavity under direct visualization with the laparoscope. A quick survey of the anatomy revealed a normal uterus, right fallopian tube, and ovaries bilaterally, a ruptured left tubal , and hemoperitoneum. A third 5-mm skin incision was made in the suprapubic region and a 5-mm trocar and sleeves were advanced into the abdomen under the direct visualization with the laparoscope. The left fallopian tube with the ectopic was grasped with Kahlil clamp and it was resected using the Ligasure. Good hemostasis was obtained. The hemiperitoneum was suctioned. Endobag was used to removed the ectopic products from the abdomen. That was sent to pathology. The ports were then opened to release to CO2 gas from the abdomen. The instruments were then removed. The ports were closed with 3.0 vicryl sutures. Steri-Strip and Tegaderm were placed. The HUMI uterine manipulator and Payan catheter were then removed. The counts of laps, needles, sponges, and instruments were correct 2. The lsea ent tolerated the procedure well. She was awakened from anesthesia and taken to the recovery room in a stable condition.
--- NOTE | 2019-01-28 10:38 | Discharge Summary ---
Providers - Providers Date of Admission: 01/27/19 21:14 Attending physician: BRYAN LYNCH MD Hospitalization Reason for admission: other (Ruptured left tubal ectopic .) Procedure: other (Diagnostic laparoscopy with left salpingiectomy, evacuation of hemoperitoneum.) Procedure details: See operative report. complications: none Discharge diagnosis: other (Ruptured left tubal . S/P dioagnostic laparoscopy with left salpingiectomy.) Hospital course: Patient is a 38 year old , who is S/P operative laparoscopy with left salpingiectomy for ruptured ectopic , POD#1. She denies any complaint. She is tolerating regular diet well. Condition at discharge: Stable Disposition: DC-01 TO HOME OR SELFCARE - Discharge Diagnoses (1) 5 weeks gestation of Status: Acute (2) Ruptured ectopic Status: Acute (3) Anemia Status: Acute Qualifiers: Anemia type: iron deficiency Plan - Discharge Medications Prescriptions: Ibuprofen [Motrin] 800 mg PO Q8HR PRN #20 tablet PRN Reason: Pain, Moderate (4-6) oxyCODONE /ACETAMINOPHEN [Percocet 5/325] 1 tab PO Q4HR #7 tab - Provider Discharge Summary Activity: no sex for 6 weeks Diet: routine Additional instructions: [] Smoking cessation referral if applicable(refer to patient education folder for contact #) [] Refer to [facility]'s [facility] Booklet Call your doctor immediately for: * Fever > 100.5 * Heavy vaginal bleeding ( >1 pad per hour) * Severe persistent headache * Shortness of breath * Reddened, hot, painful area to leg or breast * Drainage or odor from incision. * Keep incision clean and dry at all times and follow doctor's instructions regarding bathing/showering - [facility] - 3-5 Days BRYAN LYNCH MD [Staff Physician] - 7 Days
[2019-01-28 10:48] LABS: Hematocrit 29.6 % (30.3-42.9); Hemoglobin 9.7 gm/dl (10.1-14.3); Mean Corpuscular HGB Conc 33 % (30-34); Mean Corpuscular Volume 75 fl (79-97); Platelet Count 219 K/mm3 (140-440); Red Blood Count 3.96 M/mm3 (3.65-5.03); Red Cell Distribution Width 15.7 % (13.2-15.2)
[2019-01-28 11:29] VITALS: BP 127/80
== END 2019-01-28 11:50 | disposition home or self-care (01) ==
LOC: ED 11:22 → OB 21:14
PROVIDERS: ADMIT Obstetrics & Gynecology; ATTEND Obstetrics & Gynecology
DX: O00.90 Unspecified ectopic pregnancy without intrauterine pregnancy (principal); O26.891 Other specified pregnancy related conditions, first trimester; R10.2 Pelvic and perineal pain; O99.011 Anemia complicating pregnancy, first trimester; Z3A.01 Less than 8 weeks gestation of pregnancy
CPT/HCPCS: 36415; 59151; 76801; 76817; 80053; 81001; 84702; 85025; 85027; 86850; 86900; 86901; 88305; 96374; 96375; 96376; 99284; G0378; J1100; J1170; J1885; J2250; J2270; J2405; J2704; J2710; J3010; J7030; J7120